=== PATIENT | male | born 1945 | race Caucasian/White ===

== ENCOUNTER 2020-07-19 00:29 | Emergency (ER) | payer OTHER, MEDICARE, SELFPAY ==
[~2020-07-19] VITALS: Ht 177.8 cm; Wt 90.7 kg
[~2020-07-19 00:29] MED LIST: ASPI-1155 PO; LIP10 PO; LISI-600 PO
[2020-07-19 00:55] VITALS: BP_SYST 135
--- NOTE | 2020-07-19 00:55 | NUR ---
PT TO TENT FOR EVALUATION
--- NOTE | 2020-07-19 01:00 | NUR ---
DR. BAUTISTA TO BEDSIDE TO EVALUATE PT STATUS
[2020-07-19 03:25] VITALS: BP_SYST 135
--- NOTE | 2020-07-19 03:25 | NUR ---
Patient given written and verbal discharge instructions and verbalizes understanding. ER MD BAUTISTA discussed with patient the results and treatment provided. Patient in stable condition. ID arm band removed. Rx of ZITHROMAX given. Patient educated on pain management and to follow up with PMD. Pain Scale 0/10. Opportunity for questions provided and answered.
== END 2020-07-19 03:25 | disposition home or self-care (01) ==
LOC: SED 00:29
DX: U07.1 COVID-19 (principal); J18.9 Pneumonia, unspecified organism; I10 Essential (primary) hypertension; Z79.82 Long term (current) use of aspirin
CPT/HCPCS: 36415; 71045; 99284

== ENCOUNTER 2023-12-30 22:29 | Emergency (ER) | payer OTHER, MEDICARE ==
[~2023-12-30] VITALS: Ht 175.3 cm; Wt 88.5 kg
[~2023-12-30 22:29] MED LIST changes: -LISI-600 PO; +LISI20TA30 PO
[2023-12-30 22:39] VITALS: BP_SYST 133; PULSE 73; RESP 16; TEMP 98.5; O2SAT 98
[2023-12-30 23:41] LABS: BASOPHILS # (AUTO) 0.1 K/uL (0.0-0.2); BASOPHILS % (AUTO) 0.5 % (0.0-2.0); EOSINOPHILS # (AUTO) 0.1 K/uL (0.0-0.4); EOSINOPHILS % (AUTO) 0.8 % (0.0-4.0); HEMATOCRIT 40.3 % (36-54); HEMOGLOBIN 13.9 g/dL (14.0-18.0); LYMPHOCYTES % (AUTO) 19.9 % (20.5-51.5); MEAN CORPUSCULAR HEMOGLOBIN 28 pg (27-31); MEAN CORPUSCULAR HGB CONC 34 % (32-36); MEAN CORPUSCULAR VOLUME 81 fL (79.0-98.0); MONOCYTES % (AUTO) 10.3 % (1.7-9.3); NEUTROPHILS # (AUTO) 6.8 K/uL (1.8-7.7); NEUTROPHILS % (AUTO) 68.5 % (40.0-70.0); PLATELET COUNT (AUTO) 191 K/uL (130-430); WHITE BLOOD COUNT (AUTO) 9.9 K/uL (4.8-10.8)
[2023-12-31 00:13] LABS: ALANINE AMINOTRANSFERASE 22 U/L (12-78); ALBUMIN 3.5 g/dL (3.4-4.8); ANION GAP 8 (5-15); ASPARTATE AMINOTRANSFERASE 15 U/L (10-37); BILIRUBIN,DIRECT 0.2 mg/dL (0.0-0.3); CALCIUM 8.6 mg/dL (8.4-11.0); CARBON DIOXIDE 29 mmol/L (23-29); CHLORIDE 105 mmol/L (98-107); CREATININE 1.29 mg/dL (0.55-1.30); GLUCOSE 95 mg/dL (74-106); POTASSIUM 3.6 mmol/L (3.5-5.1); SODIUM SERUM 142 mmol/L (136-145); TOTAL PROTEIN, SERUM 6.9 g/dL (6.4-8.3); UREA NITROGEN, BLOOD 16 mg/dL (8-21)
[2023-12-31 00:54] LABS: BILIRUBIN,URINE 1+ (NEGATIVE); BLOOD, URINE 3+ (NEGATIVE); CLARITY/URINE CLOUDY (CLEAR); COLOR,URINE BROWN (YELLOW); GLUCOSE,URINE NEGATIVE (NEGATIVE); KETONES,URINE NEGATIVE (NEGATIVE); LEUKOCYTE ESTERASE ,URINE NEGATIVE (NEGATIVE); NITRITE, URINE NEGATIVE (NEGATIVE); PROTEIN URINE 2+ (NEGATIVE); UROBILINOGEN,URINE 0.2 (0.2-1.0)
[2023-12-31 01:16] LABS: RBC,URINE >100 /HPF (0-3); WBC,URINE 0-3 /HPF (0-3)
[2023-12-31 01:17] LABS: BACTERIA,URINE RARE /HPF (None Seen)
[2023-12-31] MEDS ORDERED: HYDR-3917 PO (01:32)
[2023-12-31] MEDS ORDERED: TAMS-11 PO (01:32)
[2023-12-31 01:58] VITALS: BP_SYST 118; PULSE 62; RESP 20; TEMP 97.2; O2SAT 95
== END 2023-12-31 01:45 | disposition home or self-care (01) ==
LOC: SED 22:29
DX: N20.1 Calculus of ureter (principal); N13.30 Unspecified hydronephrosis; R10.11 Right upper quadrant pain; I10 Essential (primary) hypertension; E78.5 Hyperlipidemia, unspecified; Z79.899 Other long term (current) drug therapy; Z79.82 Long term (current) use of aspirin
CPT/HCPCS: 36415; 80048; 80076; 81000; 81001; 81015; 85025; 99284